=== PATIENT | female | born 1965 | race Caucasian/White ===

== ENCOUNTER 2020-11-16 14:30 | Emergency (ER) | payer MEDICARE, OTHER ==
[~2020-11-16 14:30] MED LIST: AMBIEN10 MG PO; CLARITIN10 MG PO; CYMBALTA60 MG PO; FLEXERIL5 MG PO; KLONOPIN2 MG PO; LISINOPRIL-HCT1 EACH PO; NAPROXEN500 MG PO; NEURONTIN300 MG PO; NORCO 5-325 TA1 EACH PO; SEROQUEL300 MG PO; VENTOLIN HFA IN18 GM INH
[2020-11-16 16:18] LABS: BASOPHIL 0.6 % (0-2); EOSINOPHIL 1.9 % (0-5); HCT 44.4 % (37.0-47.0); HGB 15.3 g/dl (12.5-16.0); LYMPHOCYTE 45.5 % (15-48); MCH 32.3 pg (25.0-31.0); MCHC 34.5 g/dL (32.0-36.0); MCV 93.9 fL (78.0-100.0); MONOCYTE 6.3 % (0-12); MPV 10.8 fL (6.0-9.5); NEUTROPHIL 45.4 % (41-80); NRBC 0; PLT 301 K/uL (150-400); RBC 4.73 M/uL (4.20-5.40); RDW 13.3 % (11.5-14.0); WBC 6.9 K/uL (4.0-10.5)
[2020-11-16 16:24] LABS: INR 0.97 (0.9-1.2); PROTHROMBIN TIME 12.2 SECONDS (11.4-13.6)
[2020-11-16 16:25] LABS: PTT 29.2 SECONDS (22.2-34.7)
[2020-11-16 16:26] LABS: D-DIMER 0.81 ug/mLFEU (0.00-0.41)
[2020-11-16 16:37] LABS: ALBUMIN 3.6 g/dL (3.4-5.0); BILIRUBIN - TOTAL 0.2 mg/dL (0.2-1.0); BUN/CREAT RATIO (CALC) 12.3 RATIO; CREATININE 0.73 mg/dL (0.51-0.95); GLOBULIN (CALCULATION) 3.7 g/dL; POTASSIUM 3.6 mmol/L (3.5-5.1); TOTAL PROTEIN 7.3 g/dL (6.4-8.2)
[2020-11-16 17:14] LABS: CORONAVIRUS 2019 SARS-COV-2 NEGATIVE (NEGATIVE); INFLUENZA A NAA NEGATIVE (NEGATIVE)
== END 2020-11-16 21:07 | disposition home or self-care (01) ==
LOC: FER 14:30
PROVIDERS: Emergency Medicine
DX: B34.9 Viral infection, unspecified (principal); R07.2 Precordial pain; I10 Essential (primary) hypertension; F17.210 Nicotine dependence, cigarettes, uncomplicated; Z20.822 Contact with and (suspected) exposure to COVID-19
CPT/HCPCS: 36415; 71046; 71100; 71275; 73030; 80053; 84484; 85025; 85379; 85610; 85730; 93005; J1100; J1885; J7030; Q9967; U0002